=== PATIENT | male | born 1955 | race Caucasian/White ===

== ENCOUNTER 2016-05-29 10:02 | Emergency (ER) | payer MEDICARE ==
[2016-05-29 12:03] LABS: RED BLOOD COUNT 4.62 M/UL (4.20-5.50); WHITE BLOOD COUNT 6.2 K/UL (4.5-11.0)
[2016-05-29 12:31] LABS: BUN/CREATININE RATIO 21 (0-10)
== END 2016-05-29 17:00 | disposition home or self-care (01) ==
LOC: ER1 10:02
PROVIDERS: Physician Assistant Medical
DX: R10.31 Right lower quadrant pain (principal); R19.7 Diarrhea, unspecified; R11.2 Nausea with vomiting, unspecified; E11.9 Type 2 diabetes mellitus without complications; I10 Essential (primary) hypertension; Z90.49 Acquired absence of other specified parts of digestive tract; Z79.899 Other long term (current) drug therapy; Z79.84 Long term (current) use of oral hypoglycemic drugs
CPT/HCPCS: 36415; 71010; 80053; 81001; 82150; 83605; 83690; 84484; 85025; 86140; 87086; 93005; 96361; 96374; 99284; J2405; J7040; J7050; Q9962

== ENCOUNTER → 2021-01-16 | Outpatient (CLI) | payer MEDICARE, OTHER | LOC: KOH-I 15:44 | DX: D38.1 Neoplasm of uncertain behavior of trachea, bronchus and lung (principal); R91.8 Other nonspecific abnormal finding of lung field | CPT/HCPCS: 71250 ==

== ENCOUNTER → 2021-02-18 | Outpatient (CLI) | payer MEDICARE, OTHER | LOC: CT 14:15 | DX: R10.13 Epigastric pain (principal); N20.0 Calculus of kidney; Q61.02 Congenital multiple renal cysts | CPT/HCPCS: 36415; 74160; 82565; 84520; Q9967 ==